=== PATIENT | male | born 1965 | race Caucasian/White ===

== ENCOUNTER → 2018-03-12 14:59 | Outpatient (CLI) | payer OTHER, SELFPAY | PROVIDERS: Visit Provider Urology | DX: C61 Malignant neoplasm of prostate (principal) | CPT/HCPCS: 36415; 84153 ==

== ENCOUNTER → 2018-10-15 07:54 | Outpatient (CLI) | payer OTHER, SELFPAY ==
[2018-10-15 09:36] LABS: Prostate Specific Antigen 5.18 ng/mL (0.10-4.00)
== END ==
PROVIDERS: PCP Family Medicine; Visit Provider Urology
DX: C61 Malignant neoplasm of prostate (principal)
CPT/HCPCS: 36415; 84153

== ENCOUNTER → 2018-12-18 07:36 | Outpatient (CLI) | payer OTHER, SELFPAY ==
--- NOTE | 2018-12-18 | DI.RAD.S_ITS ---
PROCEDURE: XR KNEE RT 3V INDICATIONS: BILATERAL KNEE PAIN TECHNIQUE: 3 views of the knee were acquired. COMPARISON: None. FINDINGS: Bones: No acute fractures or dislocations. Mild degenerative changes of the patellofemoral compartment with associated enthesophyte at the inferior pole which may represent a sequela of chronic patellar tendinopathy. No suspicious bony lesions. Soft tissues: No substantial joint effusion. No suspicious soft tissue calcifications. IMPRESSION: 1. Right knee without acute osseous abnormalities. Mild patellofemoral osteoarthrosis. 2. Inferior patellar enthesophyte may represent sequela of chronic patellar tendinopathy. Dictated by: David Giron M.D. on 12/18/2018 at 9:10 Approved by: David Giron M.D. on 12/18/2018 at 9:12
--- NOTE | 2018-12-18 | DI.RAD.S_ITS ---
PROCEDURE: XR KNEE LT 3V INDICATIONS: BILATERAL KNEE PAIN TECHNIQUE: 3 views of the knee were acquired. COMPARISON: [facility], , XR KNEE RT 3V, 12/18/2018, 7:38. FINDINGS: Bones: No acute fractures or dislocations. There are degenerative changes of the medial femorotibial and patellofemoral compartments of the left knee with mild medial femorotibial compartment joint space narrowing. Small inferior patellar osteophyte. No suspicious bony lesions. Soft tissues: No substantial joint effusion. No suspicious soft tissue calcifications. IMPRESSION: 1. Left knee without acute osseous abnormalities or malalignment. 2. Left patellofemoral and medial femorotibial compartment osteoarthrosis with associated medial joint space narrowing. 3. Small inferior patellar osteophyte suggestive of sequela of chronic patellar tendinopathy. Dictated by: David Giron M.D. on 12/18/2018 at 9:12 Approved by: David Giron M.D. on 12/18/2018 at 9:14
== END ==
PROVIDERS: PCP Family Medicine; Visit Provider Family Medicine
DX: M25.562 Pain in left knee (principal); M25.561 Pain in right knee; M17.0 Bilateral primary osteoarthritis of knee
CPT/HCPCS: 73562

== ENCOUNTER 2019-01-22 13:30 | Day surgery (SDC) | payer OTHER, SELFPAY ==
--- NOTE | 2019-01-22 | PATH_ITS ---
[facility] Accession Number: [id number] . 01 Material submitted: . sigmoid colon - SIGMOID POLYP . 02 Diagnosis: Sigmoid Colon, Polyp, Biopsy: Hyperplastic polyp. [facility]/01/25/2019 . 02 Electronically signed: . Karly Candelario MD, Pathologist NPI- [id number] . 01 Gross description: . SIGMOID POLYP: Received in formalin is 1 fragment(s) of burnham, soft tissue measuring 0.5 x 0.3 x 0.2 cm submitted entirely in 1 cassette(s) /CKI /CKI . 02 Pathologist provided ICD-10: K63.5 . 02 CPT . 079775 Performed at: 01 [facility] [address] [id number] MD Vijay Dillon MD Phone: [phone] Performed at: 02 [facility] [address] [place], [place] [id number] MD Karly Candelario MD Phone: [phone]
[2019-01-22] MEDS: SODIUM CHLORIDE 0.9% 1,000 ML 200 ML IV (14:10)
[2019-01-22 14:11] VITALS: BP 122/77; PULSE 75; RESP 14; TEMP 36.4; O2SAT 97; BMI 28.3
--- NOTE | 2019-01-22 14:21 | PM.OP.ENDO ---
Operative Date/Time/Diagnoses Date of procedure: 01/22/19 Time of procedure: 14:22 Pre-op diagnosis: 1. Screening for colon cancer Post-op diagnosis: same Procedure & Clinicians Study performed: 1. Colonoscopy Same procedure as scheduled: Yes Indications: 1. Screening for colon cancer Surgeon: Yen Chacko Procedure Notes SCOAP/Timeout: 14:32 Procedure in detail: ENDOSCOPIST: Yen Chacko MD PROCEDURE: Colonoscopy INDICATIONS: 1. Screening for colon cancer MEDICATION: Levsin 0.125 mg sublingual, incremental doses of Versed and fentanyl until appropriate level sedation achieved. ASA CLASS: 1 CECAL WITHDRAWAL TIME: 11 minutes COMPLICATIONS: None. EXTENT OF PROCEDURE: Cecum. QUALITY OF PREP: Good with portions of liquid stool. PROCEDURE: Prior to insertion of the colonoscope, a digital rectal examination was accomplished with circumferential palpation of the distal rectal mucosa without significant findings being noted. The high-definition colonoscope was passed into the rectum in the usual fashion and advanced over to the cecum without difficulty. The ileocecal valve, appendiceal stoma, and medial wall all could be inspected and no abnormalities were seen. ASCENDING COLON: As the colonoscope was withdrawn, care was taken to expose and inspect the haustral folds and no abnormalities were seen. HEPATIC FLEXURE: Normal no polyps, diverticula or other abnormalities. TRANSVERSE COLON: Normal no polyps, diverticula or other abnormalities. DESCENDING COLON: Normal no polyps, diverticula or other abnormalities. SIGMOID COLON: 4-6 mm polyp removed with cold biopsy forceps, excellent hemostasis. Normal no polyps, diverticula or other abnormalities. RECTUM: Normal. J maneuver was produced. There was no significant perianal disease. The J maneuver was broken. The remainder of the rectum was inspected and there was no external hemorrhoid disease. The scope was withdrawn. IMPRESSION: 1. Sigmoid polyp x1, 4-6 mm, removed with cold biopsy forceps PLAN: 1. Follow-up in clinic status with pathology results. The possibility of a missed lesion including a malignancy has been discussed with the patient previously. Potential alarm symptoms have been discussed and should be reported immediately. Scope withdrawal time: 11 Sedation minutes: 27 Findings: polyp Specimen(s): other Complications: none Impression: 1. Sigmoid polyp x1, 4-6 mm, removed with cold biopsy forceps Recommendations: Will call with biopsy results Follow up: weeks (2) Disposition: PACU
[2019-01-22 15:05] VITALS: BP 107/65; PULSE 76; RESP 13; TEMP 36.6; O2SAT 95
[2019-01-22 15:10] VITALS: BP 104/58; PULSE 82; RESP 12; TEMP 36.6; O2SAT 96
[2019-01-22 15:15] VITALS: BP 114/72; PULSE 82; RESP 10; TEMP 36.6; O2SAT 96
[2019-01-22 15:18] VITALS: BP 113/74; PULSE 72; RESP 16; TEMP 36.6; O2SAT 98
[2019-01-22 15:46] VITALS: BP 113/74; PULSE 72; RESP 16; TEMP 36.7; O2SAT 98
== END 2019-01-22 15:39 | disposition home or self-care (01) ==
PROVIDERS: PCP Family Medicine; Visit Provider Student in an Organized Health Care Education/Training Program
PROC: 0DJD8ZZ Inspection of Lower Intestinal Tract, Via Natural or Artificial Opening Endoscopic (ICD-10-PCS; CPT 45378; principal; 2019-01-22 15:00)
DX: Z12.11 Encounter for screening for malignant neoplasm of colon (principal); K63.5 Polyp of colon
CPT/HCPCS: 45380

== ENCOUNTER → 2019-05-07 07:25 | Outpatient (CLI) | payer OTHER, SELFPAY ==
[2019-05-07 09:57] LABS: Prostate Specific Antigen 6.56 ng/mL (0.10-4.00)
== END ==
PROVIDERS: PCP Family Medicine; Visit Provider Urology
DX: C61 Malignant neoplasm of prostate (principal)
CPT/HCPCS: 36415; 84153

== ENCOUNTER → 2019-08-03 06:49 | Outpatient (CLI) | payer BC, SELFPAY ==
[2019-08-03 08:26] LABS: Prostate Specific Antigen 5.79 ng/mL (0.10-4.00)
== END ==
PROVIDERS: PCP Family Medicine; Referring Provider Urology; Visit Provider Urology
DX: Z85.46 Personal history of malignant neoplasm of prostate (principal)
CPT/HCPCS: 36415; 84153

== ENCOUNTER → 2020-04-04 06:58 | Outpatient (CLI) | payer BC, SELFPAY ==
[2020-04-04 08:59] LABS: Prostate Specific Antigen 4.76 ng/mL (0.10-4.00)
== END ==
PROVIDERS: PCP Family Medicine; Referring Provider Urology; Visit Provider Urology
DX: Z85.46 Personal history of malignant neoplasm of prostate (principal)
CPT/HCPCS: 36415; 84153

== ENCOUNTER → 2020-08-16 08:04 | Outpatient (CLI) | payer BC, SELFPAY ==
[2020-08-16] MEDS: COVID-19 VACC, Ad26(JANSSEN)/PF 0.5 ML IM (08:18)
== END ==
PROVIDERS: PCP Family Medicine; Visit Provider Internal Medicine
DX: Z23 Encounter for immunization (principal)
CPT/HCPCS: 0031A; 91303

== ENCOUNTER → 2020-12-19 06:50 | Outpatient (CLI) | payer BC, SELFPAY ==
[2020-12-19 09:01] LABS: Prostate Specific Antigen 7.07 ng/mL (0.10-4.00)
== END ==
PROVIDERS: PCP Family Medicine; Referring Provider Urology; Visit Provider Urology
DX: C61 Malignant neoplasm of prostate (principal)
CPT/HCPCS: 36415; 84153

== ENCOUNTER → 2021-03-31 07:52 | Outpatient (CLI) | payer BC, SELFPAY ==
[2021-03-31 09:39] LABS: Prostate Specific Antigen 9.14 ng/mL (0.10-4.00)
== END ==
PROVIDERS: PCP Family Medicine; Referring Provider Internal Medicine Hematology & Oncology; Visit Provider Internal Medicine Hematology & Oncology
DX: C61 Malignant neoplasm of prostate (principal)
CPT/HCPCS: 36415; 84153

== ENCOUNTER → 2021-06-30 08:00 | Outpatient (CLI) | payer BC, SELFPAY ==
[2021-06-30 10:00] LABS: Prostate Specific Antigen 11.5 ng/mL (0.10-4.00)
== END ==
PROVIDERS: PCP Family Medicine; Referring Provider Urology; Visit Provider Urology
DX: C61 Malignant neoplasm of prostate (principal)
CPT/HCPCS: 36415; 84153

== ENCOUNTER → 2021-11-24 07:56 | Outpatient (CLI) | payer BC, SELFPAY ==
[2021-11-25 16:12] LABS: Prostate Specific Antigen 8.66 ng/mL (0.10-4.00)
== END ==
PROVIDERS: PCP Family Medicine; Referring Provider Urology; Visit Provider Urology
DX: C61 Malignant neoplasm of prostate (principal)
CPT/HCPCS: 36415; 84153

== ENCOUNTER → 2022-06-05 07:30 | Outpatient (CLI) | payer BC, SELFPAY ==
[2022-06-05 09:04] LABS: Prostate Specific Antigen 9.36 ng/mL (0.10-4.00)
== END ==
PROVIDERS: PCP Family Medicine; Referring Provider Urology; Visit Provider Urology
DX: C61 Malignant neoplasm of prostate (principal)
CPT/HCPCS: 36415; 84153